=== PATIENT | female | born 1960 | race Caucasian/White ===

== ENCOUNTER 2017-02-11 22:43 | Emergency (ER) | payer MEDICARE, MEDICAID ==
[~2017-02-11] VITALS: Wt 79.4 kg
[~2017-02-11 22:43] MED LIST: (NONE)10 MG PO; ACCUNEB 0.1.25 MG/1 INH; ALAVERT10 M1 PO; AMBIEN10 M1 PO; AVINZA120 MG PO; DULERA 200 MCG8.8 GM IH; EVISTA60 MG PO; FUROSEMIDE20 MG PO; GLIMEPIRIDE1 MG PO; LEVAQUIN750 M1 PO; LISINOPRIL-HYDR1 TA3 PO; LISINOPRIL10 MG PO; LOVASTATIN40 MG PO; MOTRIN800 MG PO; Methadone Hydro10 MG PO; NEURONTIN300 MG PO; OMEPRAZOLE20 MG PO; OXYBUTYNIN5 MG PO; OXYCONTIN60 MG PO; PERCOCET 325 MG1 TA7 PO; PHENERGAN25 M3 PO; PREDNISONE10 MG PO; PRILOSEC20 MG PO; PROAIR HFA8.5 GM INH; REGLAN5 MG PO; SERTRALINE HCL50 MG PO; TOVIAZ4 MG PO; TOVIAZ8 MG PO; VENTOLIN H0.09 MG/AC INH; Vicodin 5/500 505 MG PO; ZOLOFT25 MG PO
== END 2017-02-12 01:19 | disposition expired ==
LOC: ED 22:46
DX: I46.9 Cardiac arrest, cause unspecified (principal); K21.9 Gastro-esophageal reflux disease without esophagitis; J44.9 Chronic obstructive pulmonary disease, unspecified; F32.9 Major depressive disorder, single episode, unspecified; E11.9 Type 2 diabetes mellitus without complications; E78.5 Hyperlipidemia, unspecified; Z88.6 Allergy status to analgesic agent; Z90.49 Acquired absence of other specified parts of digestive tract; Z79.899 Other long term (current) drug therapy